=== PATIENT | female | born 1990 | race Caucasian/White ===

== ENCOUNTER 2016-12-10 15:33 | Emergency (ER) | payer MEDICAID ==
[~2016-12-10] VITALS: Ht 165.1 cm; Wt 102.0 kg
[~2016-12-10 15:33] MED LIST: CALC600T5 PO; FERR240T9 PO; IBUP800T25 PO; PERCOCET PO; PRENAT PO
[2016-12-10 15:40] VITALS: Ht 165.1 cm; Wt 102.0 kg
[2016-12-10] MEDS ORDERED: ONDANSETRON 4 MG INJ IV STA (16:47)
[2016-12-10] MEDS ORDERED: SOD CHLORIDE 0.9% 1,000 ML IV STA (16:47)
[2016-12-10] MEDS ORDERED: morphine 4 MG/ML VIAL IV STA (16:47)
--- NOTE | 2016-12-10 16:55 | ERD ---
ER Documentation Chief Complaint Date/Time DATE: 12/10/16 TIME: 16:50 Chief Complaint complains of epigastric and upper right abdominal pain that radistes to the flank HPI Patient is a 26-year-old female with a past medical history of gallstones, diabetes who presents to the emergency department with right upper abdominal pain and epigastric pain started today at 2 PM. Patient states that she's had episodes of epigastric pain in the past. Recently, patient states she has this pain 2 times a week. She states today's pain is more severe. She states her current pain level is a 6 out of 10. Patient states the pain is in her epigastric region, right upper quadrant abdomen and radiates to her mid back. Patient describes the pain to be sharp and cramping in nature. Patient reports 4 episodes of vomiting, nonbloody nonbilious. Patient states she last took Motrin 800 mg and Tylenol 1000 mg at 2 PM today. Patient denies any fever, chills, chest pain, shortness breath, cough, diaphoresis, arm pain, leg pain or loss of consciousness. Patient denies any pain with urination, frequency, urgency, excessive vaginal bleeding. Last menstrual period was 12/01/16. ROS All systems reviewed and are negative except as per history of present illness. Medications Home Meds Active Scripts Hydrocodone/Acetaminophen ([place] 10-325 Tablet) 1 Each Tablet, 1 TAB PO Q6H Y for PAIN, #7 TAB Prov:TAMY NIX PA-C 12/10/16 Ibuprofen* (Motrin*) 600 Mg Tab, 600 MG PO Q6, #30 TAB Prov:TAMY NIX PA-C 12/10/16 Ondansetron Hcl* (Zofran*) 4 Mg Tablet, 4 MG PO Q6H for NAUSEA AND/OR VOMITING, #20 TAB Prov:TAMY NIX PA-C 12/10/16 Oxycodone Hcl/Acetaminophen (Percocet) 1 Tab Tab, 2 TAB PO Q4H Y for PAIN LEVEL 6-10, #30 TAB 0 Refills Prov:MARINA VALENZUELA MD 06/20/15 Ibuprofen* (Ibuprofen*) 800 Mg Tab, 800 MG PO Q8, #20 0 Refills Prov:MARINA VALENZUELA MD 06/20/15 Reported Medications Calcium Carbonate (CALCIUM) 600 Mg Tablet, 600 MG PO DAILY 05/23/14 Ferrous Gluconate (Iron) 1 Tab Tablet, 1 TAB PO DAILY 05/23/14 Multivit/Min/Fol Ac/Iron/Pren* ( S*) 1 Tab Tab, 1 TAB PO DAILY, TAB 04/20/14 Allergies Allergies: Coded Allergies: No Known Drug Allergy (Verified Allergy, Unknown, 01/31/12) PMhx/Soc History of Surgery: No Anesthesia Reaction: No Hx Neurological Disorder: No Hx Respiratory Disorders: No Hx Cardiac Disorders: No Hx Psychiatric Problems: No Hx Miscellaneous Medical Probl: Yes (diabetes, gallstones) Hx Alcohol Use: No Hx Substance Use: No Hx Tobacco Use: No FmHx Family History: diabetes Physical Exam Vitals Vital Signs Date Time Temp Pulse Resp B/P Pulse Ox O2 Delivery O2 Flow Rate FiO2 12/10/16 15:40 98.3 69 20 111/74 99 Physical Exam GENERAL: Well-developed, well-nourished female. Appears in no acute distress. HEAD: Normocephalic, atraumatic. EYES: Pupils are equally reactive bilaterally. EOMs grossly intact. No conjunctival erythema. ENT: Moist mucous membranes. No uvula deviation. No kissing tonsils. NECK: Supple. No lymphadenopathy or thyromegaly. No meningismus. LUNG: Clear to auscultation bilaterally. No rhonchi, wheezing, rales or coarse breath sounds. HEART: Regular rate and rhythm. No murmurs, rubs or gallops. ABDOMEN: No scars, ecchymosis or rashes noted. Soft and nondistended. Tender to palpation in the upper right quadrant and epigastric region. Positive bowel sounds in all four quadrants. No rebound tenderness, no guarding. (-) McBurneys point tenderness. No CVA tenderness. BACK: No midline tenderness. EXTREMITIES: Equal pulses bilaterally. No peripheral clubbing, cyanosis or edema. No unilateral leg swelling. NEUROLOGIC: Alert and oriented. Moving all four extremities without any difficulty. Normal speech. Steady gait. SKIN: Normal color. Warm and dry. No rashes or lesions. Result Diagram: 12/10/16 1700 12/10/16 1700 Results 24 hrs Laboratory Tests Test 12/10/16 17:00 Alanine Aminotransferase (ALT/SGPT) 38IU/L Albumin 4.4g/dl Albumin/Globulin Ratio 1.18 Alkaline Phosphatase 102IU/L Anion Gap 21 Aspartate Amino Transf (AST/SGOT) 39IU/L Basophils # 0.010^3/ul Basophils % 0.2% Blood Urea Nitrogen 17mg/dl Calcium Level 10.0mg/dl Carbon Dioxide Level 27mmol/L Chloride Level 101mmol/L Creatinine 0.80mg/dl Direct Bilirubin 0.00mg/dl Eosinophils # 0.110^3/ul Eosinophils % 0.6% Globulin 3.70g/dl Glucose Level 109mg/dl Hematocrit 37.7% Hemoglobin 12.2g/dl Indirect Bilirubin 0.0mg/dl Lipase 97U/L Lymphocytes # 2.810^3/ul Lymphocytes % 21.6% Mean Corpuscular Hemoglobin 24.9pg Mean Corpuscular Hemoglobin Concent 32.4g/dl Mean Corpuscular Volume 77.1fl Mean Platelet Volume 9.9fl Monocytes # 0.910^3/ul Monocytes % 6.8% Neutrophils # 8.910^3/ul Neutrophils % 70.1% Nucleated Red Blood Cells # 0.010^3/ul Nucleated Red Blood Cells % 0.0/100WBC Platelet Count 90731^3/UL Potassium Level 4.6mmol/L Red Blood Count 4.8910^6/ul Red Cell Distribution Width 14.6% Sodium Level 144mmol/L Total Bilirubin 0.0mg/dl Total Protein 8.1g/dl Urine Bilirubin NEGATIVE Urine Clarity CLEAR Urine Color LT. YELLOW Urine Glucose NEGATIVE% Urine Hemoglobin TRACE Urine Ketones NEGATIVE Urine Leukocyte Esterase NEGATIVE Urine Microscopic RBC 0-2/HPF Urine Microscopic WBC 0-2/HPF Urine Nitrite NEGATIVE Urine Specific [place] <=1.005 Urine Squamous Epithelial Cells RARE Urine Total Protein NEGATIVE Urine Urobilinogen 0.2 E.U./dL Urine pH 5.5 White Blood Count 12.710^3/ul Current Medications Medications (Trade) Dose Ordered Sig/Britton Route PRN Reason Start Time Stop Time Status Last Admin Dose Admin Sodium Chloride (NS) 1,000 ml @ 1,000 mls/hr Q1H STAT IV 12/10/16 16:47 12/10/16 17:46 DC 12/10/16 17:10 Morphine Sulfate (morphine) 4 mg ONCE STAT IV 12/10/16 16:47 2/9/17 16:49 DC 12/10/16 17:09 Ondansetron HCl (Zofran Inj) 4 mg ONCE STAT IV 12/10/16 16:47 12/10/16 16:49 DC 12/10/16 17:09 Procedures/MDM ED COURSE: The patient was stable throughout ED course. I kept the patient and/or family informed of laboratory and diagnostic imaging results throughout the ED course. DIAGNOSTIC IMAGING: Read by radiologist. DIAGNOSTIC IMAGING REPORT Patient: THERESA REYES : 1990 Age: 26 Sex: F MR #: [id number] DOS: 12/10/16 1647 Ordering MD: TAMY NIX PA-C Location: [facility] Room/Bed: PROCEDURE: Abdominal Ultrasound (right upper quadrant). CLINICAL INDICATION: Abdominal pain TECHNIQUE: Multiple real-time longitudinal and transverse images of the right upper quadrant of the abdomen were acquired utilizing a curved array transducer. Images were reviewed on a high-resolution PACS workstation. COMPARISON: None available FINDINGS: There is increased hepatic echogenicity consistent with fatty infiltration. The liver is normal in size. No focal masses are identified. There is no evidence of intra or extrahepatic ductal dilatation. The common bile duct measures 2.8 mm in diameter. Gallstones are identified within the gallbladder. There is no gallbladder wall thickening. The visualized portions of the pancreas are unremarkable with obscuration of the tail of the pancreas. No free fluid is identified. There is no evidence of right hydronephrosis or renal calcification. The right kidney measures 9.6 cm in length. The visualized portions of the aorta and inferior vena cava are within normal limits. IMPRESSION: 1. Cholelithiasis. 2. Fatty infiltration of the liver. 3. Otherwise unremarkable right upper quadrant ultrasound. RPTAT: HJBF .Bret Palencia MD, Date Time Electronically viewed and signed by .Bret Palencia MD, MD on 2016 17:49 .B/ CC: TAMY NIX PA-C MEDICATIONS GIVEN: Morphine, Zofran, IV fluids Patient tolerated medication well with no adverse reactions. Patient reported improvement in pain. No additional episodes of vomiting were noted during ED course. MEDICAL DECISION MAKING: This is a 26-year-old female with a history of gallstones presents to the emergency department with right upper quadrant and epigastric pain. Vital signs were reviewed. Patient is afebrile. CBC showed no evidence of severe anemia. WBC count was noted to be 12.7. CMP showed no evidence of electolyte abnormalities, severe acidosis, alkalosis, renal failure, or liver disease. Lipase showed no evidence of acute pancreatitis. UA showed no evidence of acute infection or hematuria. Low suspicion for UTI, pyelonephritis or nephrolithiasis. Urine test was negative. RUQ Ultrasound showed cholelithiasis. Fatty infiltration of the liver. At this time, patient's presentation is most consistent with cholelithiasis and fatty liver disease. I have a much lower clinical concern for acute coronary syndrome, AAA, lower lobe pneumonia, DKA, SBO, bowel perforation, cholecystitis , choledocholithiasis, ascending cholangitis, hepatic abscess, pancreatitis, diverticulitis, UTI, pyelonephritis, nephrolithiasis, appendicitis, constipation , , ectopic , PID. PRESCRIPTIONS: Zofran, Ibuprofen, [place] DISCHARGE: At this time, patient is stable for discharge and outpatient management. I have instructed the patient to follow-up with his/her primary care physician in 1-2 days. Patient will need to follow up with general surgeon for outpatient management/ elective cholecystectomy. I have instructed the patient to promptly return to the ER at any time for any new or worsening symptoms including increased pain, nausea, vomiting, diarrhea, fever, weakness or LOC. The patient and/or family expressed understanding of and agreement with this plan. All questions were answered. Home care instructions were provided. Departure Diagnosis: Primary Impression: Cholelithiasis Cholelithiasis location: other site Biliary obstruction: without biliary obstruction Qualified Code: K80.80 - Biliary calculus of other site without obstruction Additional Impression: Fatty liver Condition: Stable Patient Instructions: Abdominal Pain, Gallstones Referrals: Martin LEVIA PHILIP MD KOSARI, KAMBIZ M.D. LOMIS, THOMAS MD [facility] Additional Instructions: Call your primary care doctor TOMORROW for an appointment during the next 1-2 days.See the doctor sooner or return here if your condition worsens before your appointment time. Patient will neeed to follow-up with the GI specialist and/or general surgeon for further management of her symptoms including cholecystectomy. TAMY NIX PA-C Dec 10, 2016 16:55
[2016-12-10 17:41] LABS: ADD SCAN DIFF NO
[2016-12-10 17:49] LABS: ADD UMIC YES; URINE BILIRUBIN (Dip) NEGATIVE (NEGATIVE); URINE BLOOD (Dip) TRACE (NEGATIVE); URINE COLOR LT. YELLOW (YELLOW); URINE GLUCOSE (Dip) NEGATIVE (NEGATIVE); URINE KETONES (Dip) NEGATIVE (NEGATIVE); URINE LEUKOCYTE ESTERASE (Dip) NEGATIVE (NEGATIVE); URINE NITRITE (Dip) NEGATIVE (NEGATIVE); URINE TOTAL PROTEIN (Dip) NEGATIVE (NEGATIVE); URINE UROBILINOGEN (Dip) 0.2 E.U./dL (0.1-1.0)
--- NOTE | 2016-12-10 17:49 | RADRPT ---
PROCEDURE: Abdominal Ultrasound (right upper quadrant). CLINICAL INDICATION: Abdominal pain TECHNIQUE: Multiple real-time longitudinal and transverse images of the right upper quadrant of th e abdomen were acquired utilizing a curved array transducer. Images were reviewed on a high-resoluti on PACS workstation. COMPARISON: None available FINDINGS: There is increased hepatic echogenicity consistent with fatty infiltration. The liver is normal in size. No focal masses are identified. There is no evidence of intra or extrahepatic ductal dilata tion. The common bile duct measures 2.8 mm in diameter. Gallstones are identified within the gallbl adder. There is no gallbladder wall thickening. The visualized portions of the pancreas are unremarkable with obscuration of the tail of the pancrea s. No free fluid is identified. There is no evidence of right hydronephrosis or renal calcification. The right kidney measures 9.6 cm in length. The visualized portions of the aorta and inferior vena cava are within normal limits. IMPRESSION: 1. Cholelithiasis. 2. Fatty infiltration of the liver. 3. Otherwise unremarkable right upper quadrant ultrasound. RPTAT: HJBF .Bret Palencia MD, MD Date Time Electronically viewed and signed by .Bret Palencia MD, MD on 12/10/2016 17:49 .B/
[2016-12-10 17:53] LABS: BASOPHILS % 0.2 % (0.0-2.0); EOSINOPHILS # 0.1 10^3/ul (0.0-0.5); EOSINOPHILS % 0.6 % (0.0-7.0); HEMATOCRIT 37.7 % (37.0-47.0); HEMOGLOBIN 12.2 g/dl (12.0-16.0); LYMPHOCYTES # 2.8 10^3/ul (0.8-2.9); LYMPHOCYTES % 21.6 % (15.0-51.0); MEAN CORPUSCULAR HEMOGLOBIN 24.9 pg (29.0-33.0); MEAN CORPUSCULAR HGB CONC 32.4 g/dl (32.0-37.0); MEAN CORPUSCULAR VOLUME 77.1 fl (82.0-101.0); MEAN PLATELET VOLUME 9.9 fl (7.4-10.4); MONOCYTE # 0.9 10^3/ul (0.3-0.9); MONOCYTES % 6.8 % (0.0-11.0); NEUTROPHIL # 8.9 10^3/ul (1.6-7.5); NEUTROPHILS % 70.1 % (39.0-77.0); PLATELET COUNT 361 10^3/UL (140-415); RED BLOOD COUNT 4.89 10^6/ul (4.20-5.40); RED CELL DISTRIBUTION WIDTH 14.6 % (11.5-14.5); WHITE BLOOD COUNT 12.7 10^3/ul (4.8-10.8)
[2016-12-10 17:55] LABS: ALBUMIN 4.4 g/dl (3.3-4.9)
[2016-12-10 17:56] LABS: POTASSIUM 4.6 mmol/L (3.5-5.1)
[2016-12-10 17:58] LABS: ALBUMIN/GLOBULIN RATIO 1.18; CREATININE 0.8 mg/dl (0.44-1.00); TOTAL PROTEIN 8.1 g/dl (6.1-8.1)
[2016-12-10 18:07] LABS: SQUAMOUS EPITHELIAL CELL,UR RARE; URINE RBCS 0-2 /HPF (0)
[2016-12-10] MEDS ORDERED: ONDA4TAB8 PO (18:22)
[2016-12-10] MEDS ORDERED: HYDR-902 PO (18:22)
[2016-12-10] MEDS ORDERED: IBUP-1542 PO (18:22)
== END 2016-12-10 18:59 | disposition home or self-care (01) ==
LOC: FTE 15:33
DX: K80.80 Other cholelithiasis without obstruction (principal); K76.0 Fatty (change of) liver, not elsewhere classified; E11.9 Type 2 diabetes mellitus without complications; R11.10 Vomiting, unspecified
CPT/HCPCS: 36415; 76705; 80053; 81001; 83690; 85025; 96374; 96375; J2270; J2405; J7030; Z7502; 81003

== ENCOUNTER 2018-10-29 19:48 | Emergency (ER) | payer MEDICAID ==
[~2018-10-29] VITALS: Wt 106.3 kg
[~2018-10-29 19:48] MED LIST changes: +HYDR-3980 PO; +IBUP-1542 PO; +IBUP-1544 PO; -IBUP800T25 PO; +ONDA4TAB8 PO
[2018-10-29] MEDS ORDERED: ONDANSETRON 4 MG INJ IV STA (20:49)
[2018-10-29] MEDS ORDERED: morphine 4 MG/ML VIAL IV STA (20:49)
--- NOTE | 2018-10-29 20:56 | ERD ---
ER Documentation Chief Complaint Chief Complaint bib self, cc: gallbladder stones x 3 years, has pain, took norco, tyl, ibu, HPI This is a 28-year-old female who presents here in the emergency department with complaints of right upper abdominal pain that radiates to back, right shoulder, chest area. Stated that this started today. Stated that she ate [place] food. Vomited 5 times with nonbilious nonbloody and non-projectile emesis. LMP: Stated that she is on her period right now. . Denies headache, head injury, loss of consciousness, dizziness, neck pain, neck stiffness, throat pain, difficulty swallowing, difficulty breathing lying flat, shoulder pain, chest pain, back pain, constipation, diarrhea, urinary symptoms, or possibility being , loss of bowel and bladder control, trauma, injury, falls, difficulty walking due to pain, numbness or tingling sensation, calf pain, recent travel, recent major surgery in the last 3 weeks, calf pain, recent long travel, recent exposure to any illness, recent antibiotic use in the last 3 months, fever, chills, seizures. Past medical history: Prediabetes. Gallstones. Surgical history: x3. Social: Stated that she smokes couple of sticks of cigarettes every day. Denies use of alcoholic beverages, use of illegal drugs. ROS All systems reviewed and are negative except as per history of present illness. Medications Home Meds Active Scripts Dicyclomine HCl (Dicyclomine HCl) 10 Mg Capsule, 10 MG PO TID PRN for ABDOMINAL CRAMPING, #20 CAP Prov:KURTISPAOALONZO F 10/29/18 Cephalexin* (Keflex*) 500 Mg Capsule, 500 MG PO TID for 7 Days, CAP Prov:PASILAANITAPAOALONZO F 10/29/18 Metoclopramide* (Reglan*) 10 Mg Tablet, 10 MG PO Q6 PRN for NAUSEA AND/OR VOMITING, #20 TAB Prov:PASANDRE BELTRAN 10/29/18 Ibuprofen* (Motrin*) 800 Mg Tab, 800 MG PO Q6H PRN for PAIN AND OR ELEVATED TEMP, #30 TAB Prov:PASILABANANDRE 10/29/18 Tramadol HCl (Tramadol HCl) 50 Mg Tablet, 50 MG PO Q4 PRN for SEVERE PAIN LEVEL 7-10, #12 TAB Prov:ANDRE HULL 10/29/18 Hydrocodone/Acetaminophen ([place] 10-325 Tablet) 1 Each Tablet, 1 TAB PO Q6H PRN for PAIN, #7 TAB Prov:TAMY NIX PA-C 12/10/16 Ibuprofen* (Motrin*) 600 Mg Tab, 600 MG PO Q6, #30 TAB Prov:TAMY NIX PA-C 12/10/16 Ondansetron Hcl* (Zofran*) 4 Mg Tablet, 4 MG PO Q6H for NAUSEA AND/OR VOMITING, #20 TAB Prov:TAMY NIX PA-C 12/10/16 Oxycodone Hcl/Acetaminophen (Percocet) 1 Tab Tab, 2 TAB PO Q4H PRN for PAIN LEVEL 6-10, #30 TAB 0 Refills Prov:MARINA VALENZUELA MD 06/20/15 Ibuprofen* (Ibuprofen*) 800 Mg Tab, 800 MG PO Q8, #20 0 Refills Prov:MARINA VALENZUELA MD 06/20/15 Reported Medications Calcium Carbonate (CALCIUM) 600 Mg Tablet, 600 MG PO DAILY 05/23/14 Ferrous Gluconate (Iron) 1 Tab Tablet, 1 TAB PO DAILY 05/23/14 Multivit/Min/Fol Ac/Iron/Pren* ( S*) 1 Tab Tab, 1 TAB PO DAILY, TAB 04/20/14 Allergies Allergies: Coded Allergies: No Known Drug Allergy (Verified Allergy, Unknown, 01/31/12) PMhx/Soc Medical and Surgical Hx: pt denies Surgical Hx History of Surgery: No Anesthesia Reaction: No Hx Neurological Disorder: No Hx Respiratory Disorders: No Hx Cardiac Disorders: No Hx Psychiatric Problems: No Hx Miscellaneous Medical Probl: Yes (anemia,gestational diabetes, gallstones) Hx Alcohol Use: No Hx Substance Use: No Hx Tobacco Use: No Smoking Status: Never smoker Physical Exam Vitals Vital Signs Date Temp Pulse Resp B/P (MAP) Pulse Ox O2 O2 Flow FiO2 Time Delivery Rate 10/29/18 97.8 101 20 123/72 98 Room Air 23:44 (89) 10/29/18 98.5 84 19 144/67 100 19:52 (92) Physical Exam Const: No acute distress Head: Atraumatic Eyes: Normal Conjunctiva ENT: Normal External Ears, Nose and Mouth. Neck: Full range of motion. No meningismus. Resp: Clear to auscultation bilaterally Cardio: Regular rate and rhythm, no murmurs Abd: Soft, non tender, non distended. Normal bowel sounds. Has right upper abdominal tenderness to light or deep palpation. Chest area: Examined with female field advisor. No vesicular lesions. No crepitus. Negative Rovsing sign. Negative Juan sign (heel jar test). Negative psoas sign. No CVA tenderness. Skin: No petechiae or rashes. Color appears normal for ethnicity. Back: No midline or flank tenderness Ext: No cyanosis, or edema Neur: Awake and alert. No neurological deficits. Psych: Normal Mood and Affect Result Diagram: 10/29/18213710/29/182137 Results 24 hrs Laboratory Tests Test 10/29/18 21:20 10/29/18 21:33 10/29/18 21:38 Urine Color RED Urine Clarity CLEAR Urine pH 6.0 Urine Specific [place] 1.012 Urine Ketones NEGATIVE mg/dL Urine Nitrite NEGATIVE mg/dL Urine Bilirubin NEGATIVE mg/dL Urine Urobilinogen 1+ mg/dL Urine Leukocyte Esterase 1+ Griffin/ul Urine Microscopic RBC > 182 /HPF Urine Microscopic WBC 31 /HPF Urine Hemoglobin 3+ mg/dL Urine Glucose NEGATIVE mg/dL Urine Total Protein 1+ mg/dl Urine Test NEGATIVE POC Beta HCG, Qualitative NEGATIVE White Blood Count 9.6 10^3/ul Red Blood Count 4.76 10^6/ul Hemoglobin 12.8 g/dl Hematocrit 38.9 % Mean Corpuscular Volume 81.7 fl Mean Corpuscular Hemoglobin 26.9 pg Mean Corpuscular 32.9 g/dl Hemoglobin Concent Red Cell Distribution Width 14.3 % Platelet Count 260 10^3/UL Mean Platelet Volume 9.7 fl Immature Granulocytes % 0.500 % Neutrophils % 67.2 % Lymphocytes % 24.8 % Monocytes % 5.5 % Eosinophils % 1.7 % Basophils % 0.3 % Nucleated Red Blood Cells % 0.0 /100WBC Immature Granulocytes # 0.050 10^3/ul Neutrophils # 6.4 10^3/ul Lymphocytes # 2.4 10^3/ul Monocytes # 0.5 10^3/ul Eosinophils # 0.2 10^3/ul Basophils # 0.0 10^3/ul Nucleated Red Blood Cells # 0.0 10^3/ul Prothrombin Time 13.0 Sec Prothrombin Time Ratio 1.0 INR International 0.97 Normalized Ratio Activated Partial Thromboplast 28.6 Sec Time Sodium Level 141 mmol/L Potassium Level 4.2 mmol/L Chloride Level 105 mmol/L Carbon Dioxide Level 23 mmol/L Anion Gap 13 Blood Urea Nitrogen 10 mg/dl Creatinine 0.55 mg/dl Est Glomerular Filtrat > 60 mL/min Rate mL/min Glucose Level 129 mg/dl Calcium Level 9.1 mg/dl Total Bilirubin 0.1 mg/dl Direct Bilirubin 0.00 mg/dl Indirect Bilirubin 0.1 mg/dl Aspartate Amino 378 IU/L Transf (AST/SGOT) Alanine 195 IU/L Aminotransferase (ALT/SGPT) Alkaline Phosphatase 128 IU/L Troponin I < 0.012 ng/ml Total Protein 7.5 g/dl Albumin 4.2 g/dl Globulin 3.30 g/dl Albumin/Globulin Ratio 1.27 Amylase Level 64 U/L Lipase 98 U/L Current Medications Medications Dose Sig/Britton Start Time Status Last (Trade) Ordered Route PRN Stop Time Admin Dose Reason Admin Sodium 1,000 ml @ Q1H ONCE 10/29/18 DC 10/29/18 Chloride 1,000 mls/hr IV 21:00 21:46 10/29/18 21:59 Ondansetron 4 mg ONCE STAT 10/29/18 DC 10/29/18 HCl (Zofran IV 20:49 21:45 Inj) 10/29/18 20:54 Morphine 4 mg ONCE STAT 10/29/18 DC 10/29/18 Sulfate IV 20:49 21:46 (morphine) 10/29/18 20:54 Procedures/MDM Diagnostic tests: EKG: Normal sinus rhythm with sinus arrhythmia. POC urine : Negative. Urinalysis: UTI. Culture urine: Sent. Blood works: Elevated AST and ALT. Gallbladder ultrasound: Cholelithiasis again seen with multiple mobile ga llstones in the gallbladder. There is diffuse increased hepatic echogenicity suggestive of hepatic steatosis again seen. Otherwise unremarkable examination. Treatment: Saline lock. Normal saline IV bolus. Morphine IV. Zofran IV. Re-evaluation: Denies pain. No abdominal tenderness. Differential diagnosis I have low suspicion for pancreatitis, cholecystitis, diverticulitis, bowel obstruction, appendicitis, nephrolithiasis, pyelonephritis, obstructing kidney stone, septic stone, sepsis. This case was discussed with my supervising physician, Dr. Evangelist Nieves who agreed my medical decision making. Final diagnosis: Abdominal pain. UTI. Gallstones. Biliary colic. Prescription: Keflex. Motrin. Reglan. Tramadol. Follow-up with PCP in the next 24-48 hours. Come back here in the emergency department for any new symptoms or any worsening symptoms. All questions and concerns were answered. Patient and family members verbalized understanding and agreed with plan of care. Hemodynamically stable on discharge. Departure Diagnosis: Primary Impression: Abdominal pain Additional Impressions: UTI (urinary tract infection) Gallstones Biliary colic Condition: Stable Additional Instructions: Follow-up with PCP in the next 24-48 hours. Come back here in the emergency department for any new symptoms or any worsening symptoms. ANDRE HULL Oct 29, 2018 20:56
[2018-10-29] MEDS ORDERED: SOD CHLORIDE 0.9% 1,000 ML IV ONE (21:00)
[2018-10-29] MEDS ORDERED: TRAM50TA2 PO (23:09)
[2018-10-29] MEDS ORDERED: METO10TA92 PO (23:09)
[2018-10-29] MEDS ORDERED: IBUP800T48 PO (23:09)
[2018-10-29] MEDS ORDERED: CEPH-443 PO (23:10)
[2018-10-29] MEDS ORDERED: DICY10CA40 PO (23:10)
[2018-10-29 23:44] VITALS: BP 123/72; PULSE 101; RESP 20
== END 2018-10-29 23:46 | disposition home or self-care (01) ==
LOC: FTE 19:48
DX: N39.0 Urinary tract infection, site not specified (principal); K80.70 Calculus of gallbladder and bile duct without cholecystitis without obstruction
CPT/HCPCS: 76705; 80053; 81001; 81025; 82150; 83690; 84484; 84703; 85025; 85610; 85730; 87086; 93005; 96361; 96374; 96375; J2270; J2405; J7030; Z7502